=== PATIENT | male | born 1950 | race Caucasian/White ===

== ENCOUNTER 2018-03-15 07:15 | Day surgery (SDC) | payer MEDICARE, OTHER ==
[2018-03-15] MEDS ORDERED: PHENYLephrine (100 MCG/ML) 5ML SYG (08:56)
[2018-03-15] MEDS ORDERED: PROPOFOL 20 ML (08:56)
[2018-03-15] MEDS ORDERED: LIDOCAINE 2% (SDV) 5 ML INJ (08:56)
[2018-03-15] MEDS ORDERED: hydrALAzine 20 MG INJ IV (09:00)
[2018-03-15] MEDS ORDERED: ONDANSETRON 4 MG INJ IV (09:00)
== END 2018-03-15 10:19 | disposition home or self-care (01) ==
LOC: GIL 07:15
DX: Z12.11 Encounter for screening for malignant neoplasm of colon (principal); D12.5 Benign neoplasm of sigmoid colon; K64.8 Other hemorrhoids; D64.9 Anemia, unspecified; K44.9 Diaphragmatic hernia without obstruction or gangrene; K21.9 Gastro-esophageal reflux disease without esophagitis; I10 Essential (primary) hypertension; E78.5 Hyperlipidemia, unspecified; E66.9 Obesity, unspecified; Z68.32 Body mass index [BMI] 32.0-32.9, adult
CPT/HCPCS: 43239; 88305